=== PATIENT | male | born 1995 | race Asian ===

== ENCOUNTER 2017-01-06 21:21 | Emergency (ER) | payer OTHER ==
[2017-01-06 21:31] VITALS: BP 137/96
[2017-01-06] MEDS ORDERED: oxyCODONE/Acetamin 5/325 MG* TAB PO ONE ×2 (22:06→22:25)
--- NOTE | 2017-01-06 22:29 | ED ---
Lower Extremity - HPI Summary HPI Summary: 21 y/o male while playing basketball running down court felt/ heard a pop in back of leg L, hamstring region. Fell to ground due to pain, helped off court by friends, able to walk, however very painful. no prior injuries, no meds, no pmh. no tenderness over buttock or knee region, + able to move leg, no numbness, tinlging coolness. - History of Current Complaint Chief Complaint: EDExtremityLower Stated Complaint: LT LEG PAIN Time Seen by Provider: 01/06/17 21:54 Hx Obtained From: Patient Onset of Pain: Immediate, Post Accident Onset/Duration: Hours Severity Initially: Moderate Severity Currently: Moderate Pain Intensity: 7 Pain Scale Used: 0-10 Numeric PMH/Surg Hx/FS Hx/Imm Hx Previously Healthy: Yes Infectious Disease History: No Infectious Disease History: Denies: Traveled Outside the [place] in Last 30 Days Review of Systems Constitutional: Negative Eyes: Negative ENT: Negative Cardiovascular: Negative Respiratory: Negative Positive: Myalgia, Decreased ROM Skin: Negative Psychological: Normal All Other Systems Reviewed And Are Negative: Yes Physical Exam - Summary Physical Exam Summary: 21 y/o male appearing stated age, ankle ROM equal b/l, full 5/5 strength all toes b/l full ROM, 5/5 strength, PT pulses 2+ b/l. sensation to light touch intact b/l LE's full ROM passive L knee, decreased active flexion L knee due to pain in hamstring to 110 degrees, full extention active. strength decreased 3/5 L knee flexion/ exten due to pain L thigh = R thigh- 19 3/4 CM no bruising, swelling noted. tendness medial posterior thigh, no tenderness over hamstring insertion or origin Triage Information Reviewed: Yes Vital Signs On Initial Exam: Initial Vitals Temp Pulse Resp BP Pulse Ox 100.9 F 96 16 137/96 100 01/06/17 21:27 01/06/17 21:27 01/06/17 21:27 01/06/17 21:27 01/06/17 21:27 Vital Signs Reviewed: Yes Appearance: Positive: Well-Appearing, Pain Distress - none at rest, moderate with movement Skin: Positive: Warm, Skin Color Reflects Adequate Perfusion Eyes: Positive: EOMI Musculoskeletal: Positive: Abnormal @ - see above, Other - neg homans b/l Neurological: Positive: Normal, Sensory/Motor Intact, Alert, Oriented to Person Place, Time Psychiatric: Positive: Normal AVPU Assessment: Alert Diagnostics - Vital Signs Vital Signs Temp Pulse Resp BP Pulse Ox 01/06/17 21:27 100.9 F 96 16 137/96 100 - Laboratory Lab Statement: Any lab studies that have been ordered have been reviewed, and results considered in the medical decision making process. Lower Extremity Course/Dx - Course Course Of Treatment: hamstring strain, follow up with angelique within 1 week for re-eval, ? PT vs imaging. crutches, weight bearing as tolerated, RICE - Diagnoses Differential Diagnosis/HQI/PQRI: Positive: Compartment Syndrome, DVT, Fracture ( Closed), Fracture (Open), Infection, Sprain, Strain, Tendonitis Provider Diagnoses: Hamstring strain Discharge - Discharge Plan Condition: Stable Disposition: HOME Prescriptions: oxyCODONE/Acetamin 5/325 MG* [Percocet 5/325 TAB*] 1 tab PO Q4H PRN #20 tab MDD 6 PRN Reason: Pain Patient Education Materials: Muscle Strain (ED), RICE Therapy (ED) Referrals: [facility] ANGELIQUE Buck [Primary Care Provider] - (within 1 week ) Additional Instructions: - elevate, ice, wrap, and tylenol/ ibuprofen - Make follow up appointment with Angelique tomorrow for this week - REturn to ER with increased pain, numbness, or coolness - weight bearing as tolerated - Ice x 24-48 hours
== END 2017-01-06 22:45 | disposition home or self-care (01) ==
LOC: ED 21:21
DX: S76.912A Strain of unspecified muscles, fascia and tendons at thigh level, left thigh, initial encounter (principal); W19.XXXA Unspecified fall, initial encounter; Y93.9 Activity, unspecified; Y92.9 Unspecified place or not applicable; Y99.9 Unspecified external cause status
CPT/HCPCS: 99282; A9270-GY

== ENCOUNTER 2018-08-02 14:48 | Emergency (ER) | payer OTHER ==
--- NOTE | 2018-08-02 15:26 | ED ---
Lower Extremity - HPI Summary HPI Summary: Patient is a 23 y/o M w/ c/o left quad contusion. He believes a knee struck his left quad two days ago while playing basketball. He states quad is sore, does not note any color changes, swelling at area. Pain is only experienced with exertion and bearing weight. On triage, pain is rated 1/10. Home medications and allergies reviewed. He denies fevers, rashes, joint pains. He smokes occasionally. PMHx is denied. - History of Current Complaint Chief Complaint: EDExtremityLower Stated Complaint: LT LEG INJURY Time Seen by Provider: 08/02/18 15:15 Hx Obtained From: Patient Mechanism Of Injury: Blunt Trauma - knee to left quad Onset of Pain: Days - incident occurred two days ago Onset/Duration: Days Severity Currently: Mild - 1/10 Pain Intensity: 1 Pain Scale Used: 0-10 Numeric - 1/10 Timing: Constant, Lasting Days - two days Location: Is Discrete @ - left quad Associated Signs And Symptoms: Positive: Other - NEGATIVE: joint pain. Negative : Swelling, Redness, Bruising, Fever Aggravating Factor(s): Weight Bearing, Other - exertion Able to Bear Weight: Yes - Allergies/Home Medications Allergies/Adverse Reactions: Allergies Allergy/AdvReac Type Severity Reaction Status Date / Time No Known Allergies Allergy Verified 08/02/18 14:53 PMH/Surg Hx/FS Hx/Imm Hx Sensory History: Denies: Hx Legally Blind, Hx Deafness Opthamlomology History: Denies: Hx Legally Blind EENT History: Denies: Hx Deafness Infectious Disease History: No Infectious Disease History: Denies: Traveled Outside the [place] in Last 30 Days - Family History Known Family History: Negative: Blood Disorder - Social History Alcohol Use: None Substance Use Type: Reports: None Smoking Status (MU): Never Smoked Tobacco Review of Systems Negative: Fever Negative: Edema Positive: Other - POSITIVE: left quad soreness, pain with exertion and weight bearing NEGATIVE: erythema . Negative: Rash, Bruising All Other Systems Reviewed And Are Negative: Yes Physical Exam - Summary Physical Exam Summary: Appearance: Well appearing, no pain distress Skin: warm, dry, reflects adequate perfusion Head/face: normal Eyes: EOMI, ZAKI ENT: normal Neck: supple, non-tender Respiratory: CTA, breath sounds present Cardiovascular: RRR, pulses symmetrical Abdomen: non-tender, soft Bowel Sounds: present Musculoskeletal: normal, strength/ROM intact; normal gait, no tenderness, no edema Neuro: normal, sensory motor intact, A&Ox3 Triage Information Reviewed: Yes Vital Signs On Initial Exam: Initial Vitals Temp Pulse Resp BP Pulse Ox 97.2 F 62 14 121/75 100 08/02/18 14:50 08/02/18 14:50 08/02/18 14:50 08/02/18 14:50 08/02/18 14:50 Vital Signs Reviewed: Yes Diagnostics - Vital Signs Vital Signs Temp Pulse Resp BP Pulse Ox 08/02/18 14:50 97.2 F 62 14 121/75 100 - Laboratory Lab Statement: Any lab studies that have been ordered have been reviewed, and results considered in the medical decision making process. - Ultrasound No standard instances Ultrasound Interpretation: No Acute Changes Ultrasound Interpretation Completed By: ED Physician - Bedside US of both thighs by ED Physician: no fluid is noted, normal differentiation of tissues. Lower Extremity Course/Dx - Course Course Of Treatment: Patient presents with minimal tenderness in his left thigh after being struck there while point basketball by a knee. I examined the area with bedside ultrasound and there was good differentiation of the tissues without any free fluid or edema. Again there is minimal discomfort. We will treat symptomatically. - Diagnoses Differential Diagnosis/HQI/PQRI: Positive: Sprain, Strain, Other - Contusion, hematoma Provider Diagnoses: Contusion of left thigh Discharge - Sign-Out/Discharge Documenting (check all that apply): Patient Departure - discharge - Discharge Plan Condition: Improved Disposition: HOME Patient Education Materials: Contusion in Adults (ED) Referrals: [facility] - [facility] [Primary Care Provider] - Additional Instructions: Ice, ibuprofen, stretching exercises as tolerated. Rest from any strenuous activity for several days. Return if worse, new symptoms or other concerns. - Billing Disposition and Condition Condition: IMPROVED Disposition: Home - Attestation Statements Document Initiated by Scribe: Yes Documenting Scribe: Sagar Espinosa Provider For Whom Scribe is Documenting (Include Credential): Mike Maria MD Scribe Attestation: Sagar Kendall, scribed for Mike Maria MD on 08/02/18 at 1619. Scribe Documentation Reviewed: Yes Provider Attestation: The documentation as recorded by the Sagar mckeon accurately reflects the service I personally performed and the decisions made by me, Mike Maria MD
[2018-08-02 15:45] VITALS: BP 0/0
== END 2018-08-02 15:38 | disposition home or self-care (01) ==
LOC: ED 14:48
DX: S70.12XA Contusion of left thigh, initial encounter (principal); W22.8XXA Striking against or struck by other objects, initial encounter; Y93.67 Activity, basketball; Y92.9 Unspecified place or not applicable
CPT/HCPCS: 99281

== ENCOUNTER 2019-03-18 06:51 | Emergency (ER) | payer OTHER ==
--- NOTE | 2019-03-18 07:22 | ED ---
Upper Extremity Pain - HPI Summary HPI Summary: 23-year-old male presents with right wrist pain for the past days. He states he hurt it playing basketball. He does not believe he fell on it. He has pain over his ulnar aspect of the wrist. No other injury. No previous fracture to the area. Is right-handed. Has no medical conditions. - History of Current Complaint Chief Complaint: EDExtremityUpper Stated Complaint: POSS SPRAINED RT WRIST PER PT Time Seen by Provider: 03/18/19 06:58 - Allergies/Home Medications Allergies/Adverse Reactions: Allergies Allergy/AdvReac Type Severity Reaction Status Date / Time No Known Allergies Allergy Verified 03/18/19 06:57 Home Medications: Home Medications NK [No Home Medications Reported] 03/18/19 [History Confirmed 03/18/19] PMH/Surg Hx/FS Hx/Imm Hx Endocrine/Hematology History: Denies: Hx Anticoagulant Therapy Respiratory History: Denies: Hx Asthma Sensory History: Denies: Hx Legally Blind, Hx Deafness Opthamlomology History: Denies: Hx Legally Blind Infectious Disease History: No Infectious Disease History: Denies: Traveled Outside the [place] in Last 30 Days - Family History Known Family History: Negative: Blood Disorder - Social History Alcohol Use: Weekly Alcohol Amount: 2x Substance Use Type: Reports: Marijuana Smoking Status (MU): Current Some Day Smoker Review of Systems Negative: Fever Negative: Chest Pain Negative: Shortness Of Breath Positive: Myalgia - right wrist pain All Other Systems Reviewed And Are Negative: Yes Physical Exam Triage Information Reviewed: Yes Vital Signs On Initial Exam: Initial Vitals Temp Pulse Resp BP Pulse Ox 97.5 F 58 16 133/55 98 03/18/19 06:53 03/18/19 06:53 03/18/19 06:53 03/18/19 06:53 03/18/19 06:53 Vital Signs Reviewed: Yes Appearance: Positive: Well-Appearing Skin: Positive: Warm, Dry Head/Face: Positive: Normal Head/Face Inspection Eyes: Positive: Normal, Conjunctiva Clear ENT: Positive: Pharynx normal Respiratory/Lung Sounds: Positive: Clear to Auscultation, Breath Sounds Present Cardiovascular: Positive: Normal, RRR Musculoskeletal: Positive: Strength/ROM Intact - right wrist with pain, Other - no snuff box tenderness, good pulses, capillary refill<2secs Neurological: Positive: Normal Psychiatric: Positive: Normal Diagnostics - Vital Signs Vital Signs Temp Pulse Resp BP Pulse Ox 03/18/19 06:53 97.5 F 58 16 133/55 98 - Laboratory Lab Statement: Any lab studies that have been ordered have been reviewed, and results considered in the medical decision making process. - Radiology wrist Radiology Interpretation Completed By: Radiologist Summary of Radiographic Findings: IMPRESSION: NO ACUTE OSSEOUS INJURY. IF SYMPTOMS PERSIST, RECOMMEND REPEAT IMAGING. Course/Dx - Course Course Of Treatment: 23-year-old male presents with right wrist pain for the past days. He states he hurt it playing basketball. He does not believe he fell on it. He has pain over his ulnar aspect of the wrist. No other injury. No previous fracture to the area. Is right-handed. Has no medical conditions. On exam tenderness over right ulna area. no snuff box tenderness. Neurovascular intact. Good clerical receptionist strength. X-ray normal. We'll treat as sprain with rice. Patient understands agrees plan. - Diagnoses Differential Diagnosis/HQI/PQRI: Positive: Fracture (Closed), Strain, Sprain Provider Diagnoses: Right wrist pain Discharge - Sign-Out/Discharge Documenting (check all that apply): Patient Departure Patient Received Moderate/Deep Sedation with Procedure: No - Discharge Plan Condition: Good Disposition: HOME Patient Education Materials: Wrist Sprain (ED) Referrals: No Primary Care Phys,NOPCP [Primary Care Provider] - Additional Instructions: Take Tylenol or ibuprofen every 6 hours as needed for pain Apply ice, rest, elevate Keep zeke on area as needed Follow up with health center if no improvement Return to ED if develop any new or worsening symptoms - Billing Disposition and Condition Condition: GOOD Disposition: Home
[2019-03-18 07:51] VITALS: BP 0/0
== END 2019-03-18 07:50 | disposition home or self-care (01) ==
LOC: ED 06:51
DX: M25.531 Pain in right wrist (principal); F17.200 Nicotine dependence, unspecified, uncomplicated; X58.XXXA Exposure to other specified factors, initial encounter; Y93.67 Activity, basketball; Y92.9 Unspecified place or not applicable
CPT/HCPCS: 99282